=== PATIENT | female | born 1950 | race Caucasian/White ===

== ENCOUNTER 2016-04-02 21:51 | Inpatient (IN) | payer MEDICARE, OTHER ==
[~2016-04-02] VITALS: Ht 157.5 cm; Wt 40.5 kg
[~2016-04-02 21:51] MED LIST: ALEN70TA5 PO; ALPR0.5T PO; ASPI325T4 PO; CHOL100013 PO; CHOL10002 PO; CHOL10003 PO; CIPR500T94 PO; FENT1PAT91 TP; IPRA3AMP NEB; LEVO75TA5 PO; MOME220A5 IH; OXAP600T PO; OXYC10TA PO; OXYC20TA34 PO; OXYC30TA64 PO; PRED-220 PO; PROAIR HFA8.5 GM INH; TIOT18CA IH; TRAM50TA PO
[2016-04-02] MEDS ORDERED: FENTANYL PF 100 MCG/2 ML VIAL. IV PRN ×2 (22:00→22:15)
[2016-04-02] MEDS ORDERED: IPRATRPIUM/ALBUTEROL 0.5/2.5MG 3 ML NEBU. NEB ONE (22:00)
[2016-04-02] MEDS ORDERED: ALBUTEROL SULFATE 2.5 MG/3 ML NEBU. CONT NEB ONE (22:00)
[2016-04-02] MEDS ORDERED: methylPREDNISolone SOD SUCC PF 125 MG/2 ML VIAL. IV ONE (22:00)
[2016-04-02 22:09] LABS: BASO # 0.1 x10^3/uL (0.0-0.2); BASO % 0 % (0-3); EOS % 0 % (0-3); HEMATOCRIT 42.4 % (36.0-47.0); HEMOGLOBIN 13.9 g/dL (12.0-15.5); LYMPH # 1.1 x10^3/uL (1.0-4.8); LYMPH % 5 % (24-48); MEAN CORPUSCULAR HEMOGLOBIN 31 pg (25-35); MEAN CORPUSCULAR HGB CONC 33 g/dL (31-37); MEAN CORPUSCULAR VOLUME 94 fL (79-100); MONO % 5 % (0-9); NEUT % 89 % (31-73); PLATELET COUNT 266 x10^3/uL (140-400); RED BLOOD COUNT 4.53 x10^6/uL (3.50-5.40); RED CELL DISTRIBUTION WIDTH 14.4 % (11.5-14.5); WHITE BLOOD COUNT 22.9 x10^3/uL (4.0-11.0)
[2016-04-02] MEDS ORDERED: ONDANSETRON PF 4 MG/2 ML VIAL. IV PRN (22:15)
[2016-04-02] MEDS ORDERED: ACETAMINOPHEN 325 MG TABLET. PO PRN (22:15)
[2016-04-02 22:28] LABS: CALCIUM 9.8 mg/dL (8.5-10.1); CREATININE 0.6 mg/dL (0.6-1.0); POTASSIUM 4.2 mmol/L (3.5-5.1)
[2016-04-02 22:33] LABS: PLT ESTIMATE ADEQUATE (ADEQUATE); TOXIC GRANULATION SLIGHT
--- NOTE | 2016-04-02 22:44 | PHYS DOC ---
Past Medical History Past Medical History: Anxiety, Arthritis, CHF, COPD, Depression, Hypothyroid, UTI Additional Past Medical Histor: EMPHYSEMA Past Surgical History: Tonsillectomy Additional Past Surgical Histo: ABDOMINAL Alcohol Use: None Drug Use: None Adult General Chief Complaint Chief Complaint: SHORTNESS OF BREATH HPI HPI Patient is a 65 year old female who presents by EMS severe dyspnea. States she thinks it has been worse in the past few days, but she cannot give a clear time course of onset of symptoms. She notes dry cough and dyspnea, not helped with home inhaler. When asked, she does note right foot and ankle swelling over the past week with no history of trauma and no pain. Denies hemoptysis, chest pain, fever or chills, nausea or vomiting, rhinorrhea, sore throat, and myalgia. Review of Systems Review of Systems Constitutional: Denies fever or chills [] Eyes: Denies change in visual acuity, redness, or eye pain [] HENT: Denies nasal congestion or sore throat [] Respiratory: Has cough and shortness of breath [] Cardiovascular: No additional information not addressed in HPI [] GI: Denies abdominal pain, nausea, vomiting, bloody stools or diarrhea [] : Denies dysuria or hematuria [] Musculoskeletal: Denies back pain or joint pain [] Integument: Denies rash or skin lesions [] Neurologic: Denies headache, focal weakness or sensory changes [] Endocrine: Denies polyuria or polydipsia [] Current Medications Current Medications Current Medications Medications (Trade) Dose Ordered Sig/Almas Start Time Stop Time Status Last Admin Dose Admin Albuterol Sulfate (Ventolin Neb Soln) 10 mg 1X ONCE 04/02/16 22:00 04/02/16 22:01 DC 04/02/16 22:09 10 MG Albuterol/ Ipratropium (Duoneb) 3 ml 1X ONCE 04/02/16 22:00 04/02/16 22:01 DC 04/02/16 22:08 3 ML Fentanyl Citrate (Fentanyl 2ml Vial) 25 mcg PRN Q15MIN PRN 04/02/16 22:00 Methylprednisolone Sodium Succinate (Solu-Medrol 125mg Vial) 125 mg 1X ONCE 04/02/16 22:00 04/02/16 22:01 DC 04/02/16 22:18 125 MG Allergies Allergies Allergies Coded Allergies Type Severity Reaction Last Updated Verified shellfish derived Allergy Intermediate 11/11/15 Yes Physical Exam Physical Exam Constitutional: Well developed, well nourished, severe distress, non-toxic appearance. [] HENT: Normocephalic, atraumatic, bilateral external ears normal, oropharynx moist, no oral exudates, nose normal. [] Eyes: PERRLA, EOMI, conjunctiva normal, no discharge. [] Neck: Normal range of motion, supple, no stridor. [] Cardiovascular:Heart rate regular rhythm [] Lungs & Thorax: Bilateral poor air movement, no crackles, tripoding [] Abdomen: Bowel sounds normal, soft, no tenderness. [] Skin: Warm, dry, no erythema, no rash. [] Back: No tenderness, no CVA tenderness. [] Extremities: No tenderness, No discoloration, ROM intact. Right foot and ankle with nonpitting edema. [] Neurologic: Alert and oriented X 3, normal motor function, normal sensory function, no focal deficits noted. [] Psychologic: Affect normal, judgement normal, mood normal. [] Current Patient Data Vital Signs Vital Signs Date Time Temp Pulse Resp B/P Pulse Ox O2 Delivery O2 Flow Rate FiO2 04/02/16 21:51 97.5 117 38 121/55 85 Nasal Cannula 8 97.5 Lab Values Laboratory Tests Test 04/02/16 21:57 White Blood Count 22.9x10^3/uL (4.0-11.0) H Red Blood Count 4.53x10^6/uL (3.50-5.40) Hemoglobin 13.9g/dL (12.0-15.5) Hematocrit 42.4% (36.0-47.0) Mean Corpuscular Volume 94fL (79-100) Mean Corpuscular Hemoglobin 31pg (25-35) Mean Corpuscular Hemoglobin Concent 33g/dL (31-37) Red Cell Distribution Width 14.4% (11.5-14.5) Platelet Count 266x10^3/uL (140-400) Neutrophils (%) (Auto) 89% (31-73) H Lymphocytes (%) (Auto) 5% (24-48) L Monocytes (%) (Auto) 5% (0-9) Eosinophils (%) (Auto) 0% (0-3) Basophils (%) (Auto) 0% (0-3) Neutrophils # (Auto) 20.4x10^3uL (1.8-7.7) H Lymphocytes # (Auto) 1.1x10^3/uL (1.0-4.8) Monocytes # (Auto) 1.2x10^3/uL (0.0-1.1) H Eosinophils # (Auto) 0.0x10^3/uL (0.0-0.7) Basophils # (Auto) 0.1x10^3/uL (0.0-0.2) Segmented Neutrophils % 65% (35-66) Band Neutrophils % 22% (0-9) H Lymphocytes % 11% (24-48) L Monocytes % 2% (0-10) Toxic Granulation Slight Platelet Estimate Adequate (ADEQUATE) D-Dimer (Trina) < 0.27ug/mlFEU (0.00-0.50) Sodium Level 141mmol/L (136-145) Potassium Level 4.2mmol/L (3.5-5.1) Chloride Level 100mmol/L (98-107) Carbon Dioxide Level 35mmol/L (21-32) H Anion Gap 6 (6-14) Blood Urea Nitrogen 23mg/dL (7-20) H Creatinine 0.6mg/dL (0.6-1.0) Estimated GFR (Cockcroft-Gault) 101.0 Glucose Level 151mg/dL (70-99) H Calcium Level 9.8mg/dL (8.5-10.1) Troponin I Quantitative < 0.017ng/mL (0.000-0.055) YI-Cuh-W-Type Natriuretic Peptide 307pg/mL (0-124) H Laboratory Tests 04/02/16 21:57 Laboratory Tests 04/02/16 21:57 EKG EKG EKG as interpreted by me is sinus tachycardia, rate 123, poor quality but no obvious STEMI, time 2201 EKG as interpreted by me as sinus tachycardia, rate 127, no ST-T changes, normal intervals, no ectopy, time 2314 Radiology/Procedures Radiology/Procedures Chest xray as interpreted by me with no acute cardiopulmonary disease process Course & Med Decision Making Course & Med Decision Making Pertinent Labs and Imaging studies reviewed. (See chart for details) She arrived in severe respiratory distress likely from COPD exacerbation. She was placed on BiPAP with improvement in respiratory effort. She now has bilateral wheezing with better air movement. She tested positive for influenza A and she has leukocytosis, but her laboratory evaluation is otherwise unremarkable including negative d-dimer. Discussed case with Dr. Tripp, on- call for Dr. Cooney, who will admit. ABG was deferred at this time due to inability to draw after multiple attempts since her symptoms and exam are improving. Dragon Disclaimer Dragon Disclaimer This electronic medical record was generated, in whole or in part, using a voice recognition dictation system. Critical Care Time Critical care time was 50 minutes exclusive of procedures. Departure Departure Impression: Primary Impression: Acute and chronic respiratory failure Additional Impression: COPD exacerbation Disposition: ADMITTED INPATIENT Condition: CRITICAL Referrals: Cam COONEY MD (PCP) Problem Qualifiers Evan SOUZA MD Apr 02, 2016 22:44
[2016-04-02] MEDS ORDERED: LEVOFLOXACIN PER PHARMACY MC PRN (23:00)
[2016-04-02 23:09] LABS: OBC FLU VALID
[2016-04-02] MEDS ORDERED: OSELTAMIVIR 75 MG CAPSULE PO STA (23:30)
[2016-04-03] VITALS (17 sets, daily range): BP systolic 86–112; BP diastolic 50–69
[2016-04-03] MEDS ORDERED: IV NORMAL SALINE 500ML BAG 500 ML IV ONE (00:15)
--- NOTE | 2016-04-03 08:03 | RAD ---
Portable chest, 04/02/2016: History: Dyspnea Comparison is made to a study from 01/26/2016. The heart size is normal. The lungs are hyperexpanded suggesting obstructive pulmonary disease. There is mildly prominent pulmonary markings in the lung bases probably due to fibrosis. No pulmonary consolidation is seen. There is no evidence of pleural fluid. The bony structures are demineralized. IMPRESSION: 1. Emphysema and fibrosis. 2. No acute cardiopulmonary abnormality is detected.
[2016-04-03] MEDS: IPRATRPIUM/ALBUTEROL 0.5/2.5MG 3 ML NEBU. NEB SCH ×4 (08:08→19:23)
[2016-04-03 08:31] LABS: HCO3 ABG 34 mmol/L (21-28); PH ABG 7.37 (7.35-7.45); PO2 ABG 122 mmHg (65-108); SAT O2 ABG 98 % (92-99)
[2016-04-03 08:32] LABS: FIO2 ABG 50; PCO2 ABG 61 mmHg (35-46)
[2016-04-03] MEDS: OSELTAMIVIR 75 MG CAPSULE PO SCH ×2 (08:48→20:45)
--- NOTE | 2016-04-03 09:42 | PDOC ---
Provider Note Provider Note Dictated doing well off BIPAP transfer to floor JONATHAN RIVAS MD Apr 03, 2016 09:42
--- NOTE | 2016-04-03 10:29 | PDOC ---
PROGRESS NOTES Subjective Subjective Patient reports breathing is much better than at admission. Objective Objective Vital Signs Date Time Temp Pulse Resp B/P Pulse Ox O2 Delivery O2 Flow Rate FiO2 04/03/16 08:49 20 100 Nasal Cannula 2.0 04/03/16 07:00 86 102/63 04/03/16 04:00 98.1 98.1 Intake and Output 04/03/16 07:00 Intake Total 0 ml Balance 0 ml Intake Oral 0 ml # Voids 1 Physical Exam Abdomen: Normal bowel sounds, Soft, No tenderness Heart: Regular rate Extremities: Other (mild edema R LE without erythema or TTP) General: Alert, Oriented X3, No acute distress Lungs: Other (BS moderately decreased throughout, no wheezes heard, no cough with deep breath) Assessment Assessment Problems Medical Problems: (1) Acute and chronic respiratory failure Status: Acute (2) Acute respiratory failure Status: Acute (3) COPD exacerbation Status: Acute Plan Plan of Care 1. Acute on chronic respiratory failure with COPD and Influenza A - required Bipap at admission but has improved and now breathing comfortably on her usual O2 per NC. CXR without infiltrate. Continue nebs and Levaquin. Dr Bhat following. No indication for steroids at this time, patient did receive one dose in the ER. 2. R LE edema - venous dopplers ordered. Does not appear to be due to infection or trauma. Patient thinks it is swollen because she sits with her left leg propped up at home. 3. chronic pain - continue her usual po pain meds. 4. hypothyroidism - continue Levothyroxine. Comment Review of Relevant I have reviewed the following items shubham (where applicable) has been applied. Labs Laboratory Tests Test 04/02/16 21:57 04/02/16 22:20 04/03/16 08:25 White Blood Count 22.9x10^3/uL (4.0-11.0) Red Blood Count 4.53x10^6/uL (3.50-5.40) Hemoglobin 13.9g/dL (12.0-15.5) Hematocrit 42.4% (36.0-47.0) Mean Corpuscular Volume 94fL (79-100) Mean Corpuscular Hemoglobin 31pg (25-35) Mean Corpuscular Hemoglobin Concent 33g/dL (31-37) Red Cell Distribution Width 14.4% (11.5-14.5) Platelet Count 266x10^3/uL (140-400) Neutrophils (%) (Auto) 89% (31-73) Lymphocytes (%) (Auto) 5% (24-48) Monocytes (%) (Auto) 5% (0-9) Eosinophils (%) (Auto) 0% (0-3) Basophils (%) (Auto) 0% (0-3) Neutrophils # (Auto) 20.4x10^3uL (1.8-7.7) Lymphocytes # (Auto) 1.1x10^3/uL (1.0-4.8) Monocytes # (Auto) 1.2x10^3/uL (0.0-1.1) Eosinophils # (Auto) 0.0x10^3/uL (0.0-0.7) Basophils # (Auto) 0.1x10^3/uL (0.0-0.2) Segmented Neutrophils % 65% (35-66) Band Neutrophils % 22% (0-9) Lymphocytes % 11% (24-48) Monocytes % 2% (0-10) Toxic Granulation Slight Platelet Estimate Adequate (ADEQUATE) D-Dimer (Trina) < 0.27ug/mlFEU (0.00-0.50) Sodium Level 141mmol/L (136-145) Potassium Level 4.2mmol/L (3.5-5.1) Chloride Level 100mmol/L (98-107) Carbon Dioxide Level 35mmol/L (21-32) Anion Gap 6 (6-14) Blood Urea Nitrogen 23mg/dL (7-20) Creatinine 0.6mg/dL (0.6-1.0) Estimated GFR (Cockcroft-Gault) 101.0 Glucose Level 151mg/dL (70-99) Calcium Level 9.8mg/dL (8.5-10.1) Troponin I Quantitative < 0.017ng/mL (0.000-0.055) AE-Swb-D-Type Natriuretic Peptide 307pg/mL (0-124) Influenza Type A Antigen Positive (NEGATIVE) Influenza Type B Antigen Negative (NEGATIVE) O2 Saturation 98% (92-99) Arterial Blood pH 7.37 (7.35-7.45) Arterial Blood pCO2 at Patient Temp 61mmHg (35-46) Arterial Blood pO2 at Patient Temp 122mmHg (65-108) Arterial Blood HCO3 34mmol/L (21-28) Arterial Blood Base Excess 7mmol/L (-3-3) FiO2 50 Laboratory Tests Test 04/02/16 21:57 04/02/16 22:20 04/03/16 08:25 White Blood Count 22.9x10^3/uL (4.0-11.0) Red Blood Count 4.53x10^6/uL (3.50-5.40) Hemoglobin 13.9g/dL (12.0-15.5) Hematocrit 42.4% (36.0-47.0) Mean Corpuscular Volume 94fL (79-100) Mean Corpuscular Hemoglobin 31pg (25-35) Mean Corpuscular Hemoglobin Concent 33g/dL (31-37) Red Cell Distribution Width 14.4% (11.5-14.5) Platelet Count 266x10^3/uL (140-400) Neutrophils (%) (Auto) 89% (31-73) Lymphocytes (%) (Auto) 5% (24-48) Monocytes (%) (Auto) 5% (0-9) Eosinophils (%) (Auto) 0% (0-3) Basophils (%) (Auto) 0% (0-3) Neutrophils # (Auto) 20.4x10^3uL (1.8-7.7) Lymphocytes # (Auto) 1.1x10^3/uL (1.0-4.8) Monocytes # (Auto) 1.2x10^3/uL (0.0-1.1) Eosinophils # (Auto) 0.0x10^3/uL (0.0-0.7) Basophils # (Auto) 0.1x10^3/uL (0.0-0.2) Segmented Neutrophils % 65% (35-66) Band Neutrophils % 22% (0-9) Lymphocytes % 11% (24-48) Monocytes % 2% (0-10) Toxic Granulation Slight Platelet Estimate Adequate (ADEQUATE) D-Dimer (Trina) < 0.27ug/mlFEU (0.00-0.50) Sodium Level 141mmol/L (136-145) Potassium Level 4.2mmol/L (3.5-5.1) Chloride Level 100mmol/L (98-107) Carbon Dioxide Level 35mmol/L (21-32) Anion Gap 6 (6-14) Blood Urea Nitrogen 23mg/dL (7-20) Creatinine 0.6mg/dL (0.6-1.0) Estimated GFR (Cockcroft-Gault) 101.0 Glucose Level 151mg/dL (70-99) Calcium Level 9.8mg/dL (8.5-10.1) Troponin I Quantitative < 0.017ng/mL (0.000-0.055) RC-Vik-Z-Type Natriuretic Peptide 307pg/mL (0-124) Influenza Type A Antigen Positive (NEGATIVE) Influenza Type B Antigen Negative (NEGATIVE) O2 Saturation 98% (92-99) Arterial Blood pH 7.37 (7.35-7.45) Arterial Blood pCO2 at Patient Temp 61mmHg (35-46) Arterial Blood pO2 at Patient Temp 122mmHg (65-108) Arterial Blood HCO3 34mmol/L (21-28) Arterial Blood Base Excess 7mmol/L (-3-3) FiO2 50 Medications Current Medications Albuterol/ Ipratropium (Duoneb) 3 ml 1X ONCE NEB Last administered on 22:08; Start 04/02/16 at 22:00; Stop 04/02/16 at 22:01; Status DC Methylprednisolone Sodium Succinate (Solu-Medrol 125mg Vial) 125 mg 1X ONCE IV Last administered on 04/02/16 22:18; Start 04/02/16 at 22:00; Stop 04/02/16 at 22:01; Status DC Albuterol Sulfate (Ventolin Neb Soln) 10 mg 1X ONCE CONT NEB Last administered on 04/02/16 22:09; Start 04/02/16 at 22:00; Stop 04/02/16 at 22:01 ; Status DC Fentanyl Citrate (Fentanyl 2ml Vial) 25 mcg PRN Q15MIN PRN IV pain; Start 04/02 at 22:00 Ondansetron HCl (Zofran) 4 mg PRN Q8HRS PRN IV NAUSEA/VOMITING; Start 04/02/16 at 22:15; Stop 04/03/16 at 22:14 Fentanyl Citrate (Fentanyl 2ml Vial) 50 mcg PRN Q2HR PRN IV PAIN Last administered on 04/03/16 08:49; Start 04/02/16 at 22:15; Stop 04/03/16 at 22:14 Acetaminophen (Tylenol) 650 mg PRN Q4HRS PRN PO FEVER; Start 04/02/16 at 22:15 ; Stop 04/03/16 at 22:14 Albuterol/ Ipratropium (Duoneb) 3 ml RTQID NEB Last administered on 04/03/16 08:08; Start 04/03/16 at 08:00; Stop 04/04/16 at 07:59 Levofloxacin/ Dextrose 1 each 1 each PRN DAILY PRN MC SEE COMMENTS; Start 04/02 at 23:00 Levofloxacin/ Dextrose (LEVAQUIN 500mg PREMIX) 100 ml @ 100 mls/hr Q24H IV Last administered on 04/02/16 23:05; Start 04/02/16 at 23:00 Oseltamivir Phosphate (Tamiflu) 75 mg BID PO Last administered on 04/03/16 08: 48; Start 04/03/16 at 09:00; Stop 04/08/16 at 08:59 Oseltamivir Phosphate 75 mg 75 mg 1X STAT PO Last administered on 04/02/16 23 :49; Start 04/02/16 at 23:30; Stop 04/02/16 at 23:32; Status DC Sodium Chloride (Iv Sodium Chloride 0.9% 500ml Bag) 500 ml @ 500 mls/hr 1X ONCE IV Last administered on 04/03/16 00:15; Start 04/03/16 at 00:15; Stop at 01:14; Status DC Active Scripts Active Asmanex (Mometasone Furoate) 220 Mcg Aer.pow.ba 220 Mcg IH DAILY Duoneb 0.5-3(2.5) Mg/3 Ml (Albuterol/Ipratropium) 3 Ml Ampul.neb 3 Ml NEB RTQID Reported Oxycodone Hcl 10 Mg Tablet 20 Mg PO BID Vitamin D (Cholecalciferol (Vitamin D3)) 1,000 Unit Tablet 1,000 Unit PO BID Aspirin 325 Mg Tablet 1 Tab PO DAILY Daypro (Oxaprozin) 600 Mg Tablet 1 Tab PO BID Levothyroxine Sodium 75 Mcg Tablet 1 Tab PO DAILY Vitals/I & O Vital Sign - Last 24 Hours 04/02/16 04/02/16 04/02/16 04/02/16 21:51 22:10 22:30 23:00 Temp 97.5 97.5 Pulse 117 122 126 Resp 38 26 32 B/P 121/55 144/89 105/62 Pulse Ox 85 99 99 O2 Delivery Nasal Cannula BiPAP/CPAP BiPAP/CPAP BiPAP/CPAP O2 Flow Rate 8 04/02/16 04/02/16 04/03/16 04/03/16 23:17 23:30 00:00 00:30 Pulse 124 112 102 Resp 22 22 B/P 83/55 80/52 89/58 Pulse Ox 100 100 100 O2 Delivery BiPAP/CPAP BiPAP/CPAP BiPAP/CPAP BiPAP/CPAP 04/03/16 04/03/16 04/03/16 04/03/16 01:00 01:15 01:15 01:24 Temp 98.5 98.5 Pulse 100 100 Resp 23 B/P 103/64 112/63 Pulse Ox 98 100 100 O2 Delivery BiPAP/CPAP Bi-pap BiPAP/CPAP BiPAP/CPAP 04/03/16 04/03/16 04/03/16 04/03/16 01:30 01:45 02:00 02:30 Pulse 98 92 90 88 Resp 22 18 18 15 B/P 95/62 86/54 95/66 98/65 Pulse Ox 100 100 100 100 O2 Delivery BiPAP/CPAP BiPAP/CPAP BiPAP/CPAP BiPAP/CPAP 04/03/16 04/03/16 04/03/16 04/03/16 03:00 04:00 04:00 05:00 Temp 98.1 98.1 Pulse 88 86 98 Resp 28 B/P 99/63 94/59 97/69 Pulse Ox 100 100 100 O2 Delivery BiPAP/CPAP BiPAP/CPAP Bi-pap BiPAP/CPAP 04/03/16 04/03/16 04/03/16 04/03/16 05:05 06:00 07:00 08:08 Pulse 82 86 Resp 18 14 B/P 91/58 102/63 Pulse Ox 96 100 99 100 O2 Delivery BiPAP/CPAP BiPAP/CPAP BiPAP/CPAP BiPAP/CPAP 04/03/16 08:49 Resp 20 Pulse Ox 100 O2 Delivery Nasal Cannula O2 Flow Rate 2.0 Intake and Output 04/02/16 04/02/16 04/03/16 15:00 23:00 07:00 Intake Total 0 ml Balance 0 ml KOLBY JEWELL MD Apr 03, 2016 10:29
[2016-04-03] MEDS ORDERED: OXYCODONE IR 30 MG TABLET. PO PRN (10:30)
[2016-04-03] MEDS: OXYCODONE IR 5 MG TABLET. PO PRN ×2 (10:56→21:01)
[2016-04-03] MEDS: ASPIRIN 325 MG TABLET PO SCH (10:56)
[2016-04-03] MEDS: CHOLECALCIFEROL (VITAMIN D3) 1,000 UNIT TABLET PO SCH ×2 (10:56→20:45)
[2016-04-03] MEDS: LEVOTHYROXINE 75 MCG TABLET PO SCH (10:56)
--- NOTE | 2016-04-03 11:12 | RAD ---
Right lower extremity venous ultrasound, 04/03/2016 : History: Right leg edema Duplex evaluation including grayscale, color flow and spectral Doppler analysis was performed. The femoral and popliteal veins show no filling defects to suggest DVT. The visualized calf veins are unremarkable. Mild streaky subcutaneous edema is noted in the lower leg. IMPRESSION: There is no sonographic evidence of deep vein thrombosis in the right lower extremity
--- NOTE | 2016-04-03 11:53 | HP ---
ADMIT DATE: 04/03/2016 CHIEF COMPLAINT: Shortness of breath. HISTORY OF PRESENT ILLNESS: The patient is a 65-year-old female with chronic respiratory failure due to COPD who presented to the Emergency Room with the above complaint. She reported a several day history of increasing fatigue and malaise. She had been wearing her oxygen at home and using her usual breathing treatments, but her symptoms worsened. When seen in the Emergency, she was in moderate respiratory distress with significant hypoxia on oxygen. She was placed on BiPAP and admitted for further treatment. PAST MEDICAL HISTORY: Chronic respiratory failure due to COPD, hypothyroidism, osteoporosis, chronic back pain, cardiac arrest secondary to pulmonary arrest in 2016. PAST SURGICAL HISTORY: Tonsillectomy, low back surgery, carpal tunnel release, bilateral thumb surgery and left knee surgery. ALLERGIES: The patient has no known drug allergies, but IS ALLERGIC TO SHELLFISH. MEDICATIONS: DuoNebs q.i.d., albuterol p.r.n., Daypro 600 mg two daily, oxycodone 20 mg b.i.d. p.r.n., levothyroxine 75 mcg daily, alendronate 70 mg weekly, vitamin D 1000 international units daily. FAMILY HISTORY: Noncontributory. SOCIAL HISTORY: The patient lives at home by herself. She still smokes several cigarettes daily. She does not drink alcohol to excess. REVIEW OF SYSTEMS: The patient denies fever or chills. She denies chest pain or palpitations. She denies abdominal pain, nausea or vomiting. Her chronic pain has been fairly well controlled with her usual pain pills for this. She has noticed that her right leg seems swollen compared to the left. She denies trauma. She believes this is because she often sits at home with her left leg propped up on a small stool, but not her right leg. PHYSICAL EXAMINATION: GENERAL: The patient is alert and oriented x 3, resting comfortably in bed in no acute distress. HEENT: PERRL, EOMI, sclerae clear. Oropharynx: Mucous membranes moist. NECK: Supple, without lymphadenopathy. CHEST: Breath sounds are moderately decreased throughout, but otherwise clear to auscultation. No wheezes heard. No cough with deep breath. CARDIOVASCULAR: Regular rhythm without murmur. ABDOMEN: Soft, nontender, normoactive bowel sounds are present. EXTREMITIES: The left lower extremity is within normal limits. The right lower extremity has mild edema from the calf down to the foot. There is no erythema. There is no tenderness to palpation. ASSESSMENT AND PLAN: 1. Acute on chronic respiratory failure with chronic obstructive pulmonary disease and influenza A. The patient was positive for influenza in the Emergency Room. She has been started on Tamiflu and Levaquin. Chest x-ray does not show an acute infiltrate. She required BiPAP overnight, but has transitioned to her usual oxygen per nasal cannula and is now breathing comfortably on this. Dr. Bhat has seen the patient. The patient received 1 dose of Solu-Medrol in the Emergency Room. Dr. Bhat does not feel further steroids are indicated at this time. 2. Right lower extremity edema, this does not appear to be due to infection or trauma. Venous Dopplers have been ordered to rule out deep vein thrombosis. The patient is advised to keep it elevated while she was in bed to help with the swelling. 3. Chronic pain. This is stable. Continue her usual oral medication. 4. Hypothyroidism. Continue levothyroxine. KOLBY JEWELL MD DR: CIRO/edy JOB#: [id number] / [id number] DESTINY
[2016-04-03] MEDS ORDERED: IPRATRPIUM/ALBUTEROL 0.5/2.5MG 3 ML NEBU. NEB SCH (12:00)
[2016-04-03] MEDS: BUDESONIDE 0.5 MG/2 ML NEBU NEB SCH ×2 (12:04→19:23)
[2016-04-03] MEDS: IBUPROFEN 600 MG TABLET. PO SCH ×2 (14:17→20:45)
--- NOTE | 2016-04-03 14:18 | EKG ---
[facility] [address] [place] [address] Test Date: 2016-04-02 Test Time: 22:01:44 Pat Name: DENNY SMITH Department: Room: Gender: F Senior Clinical Consultant: : 1950 Requested By: Evan SOUZA Order Number: [id number] Reading MD: Measurements Intervals [place] Rate: 123 P: [place]: QRS: 7 QRSD: 86 T: 85 QT: 292 QTc: 423 Interpretive Statements IRREGULAR RHYTHM, NO P-WAVE FOUND LOW LIMB LEAD VOLTAGE QRS(T) CONTOUR ABNORMALITY CONSISTENT WITH ANTEROSEPTAL INFARCT AGE UNDETERMINED T ABNORMALITY IN HIGH LATERAL LEADS RI6.01 Unconfirmed report No previous ECG available for comparison
--- NOTE | 2016-04-03 14:19 | EKG ---
[facility] [address] [place] [address] Test Date: 2016-04-02 Test Time: 23:14:45 Pat Name: DENNY SMITH Department: Room: Gender: F Warehouse Associate Driver: : 1950 Requested By: Evan SOUZA Order Number: [id number] Reading MD: Measurements Intervals [place] Rate: 127 P: 71 [place]: 144 QRS: 9 QRSD: 76 T: 84 QT: 230 QTc: 338 Interpretive Statements SINUS TACHYCARDIA ATRIAL PREMATURE COMPLEX(ES) LEFT ATRIAL ABNORMALITY LOW LIMB LEAD VOLTAGE QRS(T) CONTOUR ABNORMALITY CONSISTENT WITH ANTEROSEPTAL INFARCT AGE UNDETERMINED T ABNORMALITY IN ANTERIOR LEADS LATERAL LEADS RI6.01 Unconfirmed report No previous ECG available for comparison
[2016-04-04 03:06] VITALS: BP 93/53
--- NOTE | 2016-04-04 05:36 | CONS ---
DATE OF CONSULTATION: ATTENDING PHYSICIAN: Dr. Guerrero Diez. REASON FOR CONSULTATION: COPD exacerbation and respiratory failure. HISTORY OF PRESENT ILLNESS: The patient is a 65-year-old female, who has history of severe COPD. She is chronically on oxygen 2 to 2-1/2 L. The patient still on and off smokes cigarettes. She was brought in the hospital with increasing dyspnea, which was progressive. There was no significant chest pain. No leg edema. She had some dry cough. The patient was seen in the Emergency Room and her influenza screen was positive for influenza A. She is not sure whether she received a flu vaccine. Her chest x-ray did not reveal any obvious infiltrates. There were slightly prominent interstitial markings which could be related to mild fibrosis or interstitial viral pneumonitis. The patient had an echocardiogram in 11/2015 and it showed an EF of 65%. She has ABGs done while on BiPAP, which showed a pH of 7.37, pCO2 of 61 and pO2 of 122 on 50% FiO2. She feels much better. She has now taken off the BiPAP and I have been asked to see her for further evaluation. PAST MEDICAL HISTORY: Significant for severe oxygen-dependent COPD, history of chronic respiratory failure, history of depression, hypothyroidism, UTI and normal EF previously. PAST SURGICAL HISTORY: Including tonsillectomy and abdominal surgery. ALLERGIES: SHELLFISH. MEDICATIONS: Reviewed as listed in the [facility]AD including Tamiflu, DuoNeb, antibiotics and Levaquin. REVIEW OF SYSTEMS: Twelve-point systems obtained. Pertinent positives discussed in my history of present illness, otherwise noncontributory. All systems that were negative were reviewed as well. SOCIAL HISTORY: Smoked for 40+ years and still on and off smokes cigarettes. FAMILY HISTORY: Noncontributory. PHYSICAL EXAMINATION: VITAL SIGNS: Blood pressure 102/63, pulse ox 100% on 2 L, afebrile. HEENT: Sclerae nonicteric. NECK: Supple. LUNGS: With diminished breath sounds. No crackles or wheezes. CARDIOVASCULAR: Regular rate and rhythm. ABDOMEN: Soft. EXTREMITIES: With no pitting edema. LABORATORY DATA: Reviewed. Chemistries with a BUN of 22 and a creatinine of 0.6. ProBNP is 307. D-dimer less than 0.27. White cell count 22.9, hemoglobin 13.0 and platelets are 266. IMPRESSION: 1. Nyvia-at-ipurvdc respiratory failure secondary to acute exacerbation of chronic obstructive pulmonary disease and viral pneumonitis. 2. Influenza A pneumonitis. 3. Abnormal chest x-ray with prominent interstitial markings with a normal proBNP. This is most likely related to viral pneumonitis. 4. Normal ejection fraction of 65% previously. RECOMMENDATIONS: 1. Continue Tamiflu. 2. Respiratory isolation for influenza. 3. Continue with DuoNebs. 4. Monitor white cell count. It could be high due to steroids. 5. Continue empiric antibiotics for now. 6. The patient can be transferred out of the ICU. 7. Smoking cessation counseling provided. JONATHAN RIVAS MD DR: BERYL/edy JOB#: [id number] / [id number] Cam Jewell MD
[2016-04-04] MEDS: LEVOTHYROXINE 75 MCG TABLET PO SCH (06:20)
[2016-04-04] MEDS: IPRATRPIUM/ALBUTEROL 0.5/2.5MG 3 ML NEBU. NEB SCH ×4 (07:41→19:07)
[2016-04-04] MEDS: BUDESONIDE 0.5 MG/2 ML NEBU NEB SCH ×2 (07:41→19:09)
[2016-04-04] MEDS: ASPIRIN 325 MG TABLET PO SCH (08:30)
[2016-04-04] MEDS: IBUPROFEN 600 MG TABLET. PO SCH ×3 (08:30→20:46)
[2016-04-04] MEDS ORDERED: ALBUTEROL SULFATE 2.5 MG/3 ML NEBU. NEB PRN (08:30)
[2016-04-04] MEDS: CHOLECALCIFEROL (VITAMIN D3) 1,000 UNIT TABLET PO SCH ×2 (08:31→20:46)
[2016-04-04] MEDS: OSELTAMIVIR 75 MG CAPSULE PO SCH ×2 (08:31→20:46)
[2016-04-04 08:48] VITALS: BP 109/62
--- NOTE | 2016-04-04 08:58 | PDOC ---
PROGRESS NOTES Subjective Subjective Better but weak Objective Objective Vital Signs Date Time Temp Pulse Resp B/P Pulse Ox O2 Delivery O2 Flow Rate FiO2 04/04/16 08:48 98.1 87 18 109/62 95 Nasal Cannula 2.0 98.1 Intake and Output 04/04/16 07:00 Intake Total 1000 ml Output Total 1200 ml Balance -200 ml Intake Oral 1000 ml Output Urine Total 1200 ml # Voids 2 Physical Exam Abdomen: Normal bowel sounds Heart: Regular rate Extremities: No clubbing, No cyanosis General: Alert, Oriented X3, Cooperative HEENT: Atraumatic Lungs: Other (good breathing effort) Neck: Supple Neuro: Normal speech Psych/Mental Status: Mental status NL Assessment Assessment Problems Medical Problems: (1) Acute and chronic respiratory failure - due to Influenza A Status: Acute (2) Acute respiratory failure Status: Acute (3) COPD exacerbation Status: Acute Plan Plan of Care PT, OT to see, f/u CXR and CBC, may be able to DC levaquin, continue Tamiflu Comment Review of Relevant I have reviewed the following items shubham (where applicable) has been applied. Labs Laboratory Tests Test 04/02/16 21:57 04/02/16 22:20 04/03/16 06:05 04/03/16 08:25 White Blood Count 22.9x10^3/uL (4.0-11.0) Red Blood Count 4.53x10^6/uL (3.50-5.40) Hemoglobin 13.9g/dL (12.0-15.5) Hematocrit 42.4% (36.0-47.0) Mean Corpuscular Volume 94fL (79-100) Mean Corpuscular Hemoglobin 31pg (25-35) Mean Corpuscular Hemoglobin Concent 33g/dL (31-37) Red Cell Distribution Width 14.4% (11.5-14.5) Platelet Count 266x10^3/uL (140-400) Neutrophils (%) (Auto) 89% (31-73) Lymphocytes (%) (Auto) 5% (24-48) Monocytes (%) (Auto) 5% (0-9) Eosinophils (%) (Auto) 0% (0-3) Basophils (%) (Auto) 0% (0-3) Neutrophils # (Auto) 20.4x10^3uL (1.8-7.7) Lymphocytes # (Auto) 1.1x10^3/uL (1.0-4.8) Monocytes # (Auto) 1.2x10^3/uL (0.0-1.1) Eosinophils # (Auto) 0.0x10^3/uL (0.0-0.7) Basophils # (Auto) 0.1x10^3/uL (0.0-0.2) Segmented Neutrophils % 65% (35-66) Band Neutrophils % 22% (0-9) Lymphocytes % 11% (24-48) Monocytes % 2% (0-10) Toxic Granulation Slight Platelet Estimate Adequate (ADEQUATE) D-Dimer (Trina) < 0.27ug/mlFEU (0.00-0.50) Sodium Level 141mmol/L (136-145) Potassium Level 4.2mmol/L (3.5-5.1) Chloride Level 100mmol/L (98-107) Carbon Dioxide Level 35mmol/L (21-32) Anion Gap 6 (6-14) Blood Urea Nitrogen 23mg/dL (7-20) Creatinine 0.6mg/dL (0.6-1.0) Estimated GFR (Cockcroft-Gault) 101.0 Glucose Level 151mg/dL (70-99) Calcium Level 9.8mg/dL (8.5-10.1) Troponin I Quantitative < 0.017ng/mL (0.000-0.055) XV-Ckh-[id number]-Type Natriuretic Peptide 307pg/mL (0-124) Influenza Type A Antigen Positive (NEGATIVE) Influenza Type B Antigen Negative (NEGATIVE) Nasal Screen MRSA (PCR) Negative (Negative) O2 Saturation 98% (92-99) Arterial Blood pH 7.37 (7.35-7.45) Arterial Blood pCO2 at Patient Temp 61mmHg (35-46) Arterial Blood pO2 at Patient Temp 122mmHg (65-108) Arterial Blood HCO3 34mmol/L (21-28) Arterial Blood Base Excess 7mmol/L (-3-3) FiO2 50 Medications Current Medications Albuterol/ Ipratropium (Duoneb) 3 ml 1X ONCE NEB Last administered on t 22:08; Start 04/02/16 at 22:00; Stop 04/02/16 at 22:01; Status DC Methylprednisolone Sodium Succinate (Solu-Medrol 125mg Vial) 125 mg 1X ONCE IV Last administered on 04/02/16 22:18; Start 04/02/16 at 22:00; Stop 04/02/16 at 22:01; Status DC Albuterol Sulfate (Ventolin Neb Soln) 10 mg 1X ONCE CONT NEB Last administered on 04/02/16 22:09; Start 04/02/16 at 22:00; Stop 04/02/16 at 22:01 ; Status DC Fentanyl Citrate (Fentanyl 2ml Vial) 25 mcg PRN Q15MIN PRN IV pain; Start 04/02 at 22:00; Stop 04/03/16 at 10:23; Status DC Ondansetron HCl (Zofran) 4 mg PRN Q8HRS PRN IV NAUSEA/VOMITING; Start 04/02/16 at 22:15; Stop 04/03/16 at 22:14; Status DC Fentanyl Citrate (Fentanyl 2ml Vial) 50 mcg PRN Q2HR PRN IV PAIN Last administered on 04/03/16 08:49; Start 04/02/16 at 22:15; Stop 04/03/16 at 10:23 ; Status DC Acetaminophen (Tylenol) 650 mg PRN Q4HRS PRN PO FEVER; Start 04/02/16 at 22:15 ; Stop 04/03/16 at 22:14; Status DC Albuterol/ Ipratropium (Duoneb) 3 ml RTQID NEB Last administered on 04/04/16 07:41; Start 04/03/16 at 08:00; Stop 04/04/16 at 07:59; Status DC Levofloxacin/ Dextrose 1 each 1 each PRN DAILY PRN MC SEE COMMENTS; Start 04/02 at 23:00 Levofloxacin/ Dextrose (LEVAQUIN 500mg PREMIX) 100 ml @ 100 mls/hr Q24H IV Last administered on 04/03/16 23:27; Start 04/02/16 at 23:00 Oseltamivir Phosphate (Tamiflu) 75 mg BID PO Last administered on 04/04/16 08: 31; Start 04/03/16 at 09:00; Stop 04/08/16 at 08:59 Oseltamivir Phosphate 75 mg 75 mg 1X STAT PO Last administered on 04/02/16 23 :49; Start 04/02/16 at 23:30; Stop 04/02/16 at 23:32; Status DC Sodium Chloride (Iv Sodium Chloride 0.9% 500ml Bag) 500 ml @ 500 mls/hr 1X ONCE IV Last administered on 04/03/16 00:15; Start 04/03/16 at 00:15; Stop at 01:14; Status DC Aspirin (Fortino Aspirin) 325 mg DAILY PO Last administered on 04/04/16 08:30; Start 04/03/16 at 10:30 Vitamin D (Vitamin D3) 1,000 unit BID PO Last administered on 04/04/16 08:31; Start 04/03/16 at 11:00 Albuterol/ Ipratropium (Duoneb) 3 ml RTQID NEB ; Start 04/03/16 at 12:00; Stop 04/03/16 at 12:00; Status DC Levothyroxine Sodium (Synthroid) 75 mcg DAILYAC PO Last administered on 06:20; Start 04/03/16 at 10:30 Budesonide (Pulmicort) 0.5 mg RTBID NEB Last administered on 04/04/16 07:41; Start 04/03/16 at 11:00 Ibuprofen (Motrin) 600 mg TID PO Last administered on 04/04/16 08:30; Start at 14:00 Oxycodone HCl (Roxicodone) 20 mg PRN BID PRN PO PAIN; Start 04/03/16 at 10:30; Stop 04/03/16 at 10:47; Status DC Oxycodone HCl (Roxicodone) 20 mg PRN BID PRN PO PAIN Last administered on 21:01; Start 04/03/16 at 11:00 Albuterol/ Ipratropium (Duoneb) 3 ml RTQID NEB ; Start 04/04/16 at 12:00 Albuterol Sulfate (Ventolin Neb Soln) 2.5 mg PRN Q4HRS PRN NEB SHORTNESS OF BREATH; Start 04/04/16 at 08:30 Active Scripts Active Asmanex (Mometasone Furoate) 220 Mcg Aer.pow.ba 220 Mcg IH DAILY Duoneb 0.5-3(2.5) Mg/3 Ml (Albuterol/Ipratropium) 3 Ml Ampul.neb 3 Ml NEB RTQID Reported Oxycodone Hcl 10 Mg Tablet 20 Mg PO BID Vitamin D (Cholecalciferol (Vitamin D3)) 1,000 Unit Tablet 1,000 Unit PO BID Aspirin 325 Mg Tablet 1 Tab PO DAILY Daypro (Oxaprozin) 600 Mg Tablet 1 Tab PO BID Levothyroxine Sodium 75 Mcg Tablet 1 Tab PO DAILY Vitals/I & O Vital Sign - Last 24 Hours 04/03/16 04/03/16 04/03/16 04/03/16 10:00 10:37 10:56 12:00 Temp 98.9 98.9 Pulse 92 96 Resp 20 24 B/P 96/58 90/54 Pulse Ox 99 99 98 O2 Delivery Room Air Nasal Cannula Room Air O2 Flow Rate 2.0 2.0 04/03/16 04/03/16 04/03/16 04/03/16 12:04 13:00 16:00 17:00 Temp 98.0 98.2 98.0 98.2 Pulse 87 Resp 24 B/P 90/50 102/64 Pulse Ox 94 95 95 O2 Delivery Nasal Cannula Nasal Cannula Nasal Cannula O2 Flow Rate 2.5 2.0 2.5 04/03/16 04/03/16 04/03/16 04/03/16 19:00 19:23 20:00 21:01 Temp 97.1 97.1 Pulse 93 Resp 20 B/P 95/55 Pulse Ox 92 92 92 O2 Delivery Nasal Cannula Nasal Cannula Bi-pap Nasal Cannula O2 Flow Rate 2.5 2.5 2.5 04/03/16 04/03/16 04/04/16 04/04/16 22:01 23:00 03:06 07:41 Temp 97.0 97.1 97.0 97.1 Pulse 100 91 Resp 20 20 B/P 97/54 93/53 Pulse Ox 90 90 94 97 O2 Delivery Nasal Cannula Nasal Cannula Nasal Cannula Nasal Cannula O2 Flow Rate 2.5 2.5 04/04/16 08:48 Temp 98.1 98.1 Pulse 87 Resp 18 B/P 109/62 Pulse Ox 95 O2 Delivery Nasal Cannula O2 Flow Rate 2.0 Intake and Output 04/03/16 04/03/16 04/04/16 15:00 23:00 07:00 Intake Total 600 ml 400 ml Output Total 450 ml 300 ml 450 ml Balance 150 ml 100 ml -450 ml Cam COONEY MD Apr 04, 2016 08:58
--- NOTE | 2016-04-04 10:03 | PDOC ---
PULMONARY PROGRESS NOTES Subjective no soa Vitals Vital Signs Date Time Temp Pulse Resp B/P Pulse Ox O2 Delivery O2 Flow Rate FiO2 04/04/16 08:48 98.1 87 18 109/62 95 Nasal Cannula 2.0 98.1 General: Alert, No acute distress Lungs: Other (decrease bs) Cardiovascular: S1 Abdomen: Soft Neuro Exam: Alert Extremities: No Edema Labs Laboratory Tests Test 04/02/16 21:57 04/02/16 22:20 04/03/16 06:05 04/03/16 08:25 White Blood Count 22.9x10^3/uL (4.0-11.0) Red Blood Count 4.53x10^6/uL (3.50-5.40) Hemoglobin 13.9g/dL (12.0-15.5) Hematocrit 42.4% (36.0-47.0) Mean Corpuscular Volume 94fL (79-100) Mean Corpuscular Hemoglobin 31pg (25-35) Mean Corpuscular Hemoglobin Concent 33g/dL (31-37) Red Cell Distribution Width 14.4% (11.5-14.5) Platelet Count 266x10^3/uL (140-400) Neutrophils (%) (Auto) 89% (31-73) Lymphocytes (%) (Auto) 5% (24-48) Monocytes (%) (Auto) 5% (0-9) Eosinophils (%) (Auto) 0% (0-3) Basophils (%) (Auto) 0% (0-3) Neutrophils # (Auto) 20.4x10^3uL (1.8-7.7) Lymphocytes # (Auto) 1.1x10^3/uL (1.0-4.8) Monocytes # (Auto) 1.2x10^3/uL (0.0-1.1) Eosinophils # (Auto) 0.0x10^3/uL (0.0-0.7) Basophils # (Auto) 0.1x10^3/uL (0.0-0.2) Segmented Neutrophils % 65% (35-66) Band Neutrophils % 22% (0-9) Lymphocytes % 11% (24-48) Monocytes % 2% (0-10) Toxic Granulation Slight Platelet Estimate Adequate (ADEQUATE) D-Dimer (Trina) < 0.27ug/mlFEU (0.00-0.50) Sodium Level 141mmol/L (136-145) Potassium Level 4.2mmol/L (3.5-5.1) Chloride Level 100mmol/L (98-107) Carbon Dioxide Level 35mmol/L (21-32) Anion Gap 6 (6-14) Blood Urea Nitrogen 23mg/dL (7-20) Creatinine 0.6mg/dL (0.6-1.0) Estimated GFR (Cockcroft-Gault) 101.0 Glucose Level 151mg/dL (70-99) Calcium Level 9.8mg/dL (8.5-10.1) Troponin I Quantitative < 0.017ng/mL (0.000-0.055) KL-Axg-N-Type Natriuretic Peptide 307pg/mL (0-124) Influenza Type A Antigen Positive (NEGATIVE) Influenza Type B Antigen Negative (NEGATIVE) Nasal Screen MRSA (PCR) Negative (Negative) O2 Saturation 98% (92-99) Arterial Blood pH 7.37 (7.35-7.45) Arterial Blood pCO2 at Patient Temp 61mmHg (35-46) Arterial Blood pO2 at Patient Temp 122mmHg (65-108) Arterial Blood HCO3 34mmol/L (21-28) Arterial Blood Base Excess 7mmol/L (-3-3) FiO2 50 Medications Active Scripts Medications Dose Route/Sig Days Date Category Asmanex (Mometasone Furoate) 220 Mcg Aer.pow.ba 220 Mcg IH DAILY 01/29/16 Rx Duoneb 0.5-3(2.5) Mg/3 Ml (Albuterol/Ipratropium) 3 Ml Ampul.neb 3 Ml NEB RTQID 01/29/16 Rx Oxycodone Hcl 10 Mg Tablet 20 Mg PO BID 01/26/16 Reported Vitamin D (Cholecalciferol (Vitamin D3)) 1,000 Unit Tablet 1,000 Unit PO BID 11/10/15 Reported Aspirin 325 Mg Tablet 1 Tab PO DAILY 10/01/15 Reported Daypro (Oxaprozin) 600 Mg Tablet 1 Tab PO BID 10/01/15 Reported Levothyroxine Sodium 75 Mcg Tablet 1 Tab PO DAILY 10/01/15 Reported Impression . 1. Ckpyh-zt-twyglax respiratory failure secondary to acute exacerbation of chronic obstructive pulmonary disease and viral pneumonitis. 2. Influenza A pneumonitis. 3. Abnormal chest x-ray with prominent interstitial markings with a normal proBNP. This is most likely related to viral pneumonitis. 4. Normal ejection fraction of 65% previously. Plan . 1. Continue Tamiflu. 2. Respiratory isolation for influenza. 3. Continue with DuoNebs. 4. Monitor white cell count. It could be high due to steroids. 5. Continue empiric antibiotics for now. 6. increase ambulation 7. Smoking cessation counseling provided. JONATHAN RIVAS MD Apr 04, 2016 10:03
[2016-04-04 10:10] LABS: BASO % 0 % (0-3); EOS % 0 % (0-3); HEMATOCRIT 31.9 % (36.0-47.0); HEMOGLOBIN 10.3 g/dL (12.0-15.5); LYMPH # 0.9 x10^3/uL (1.0-4.8); LYMPH % 6 % (24-48); MEAN CORPUSCULAR HEMOGLOBIN 30 pg (25-35); MEAN CORPUSCULAR HGB CONC 32 g/dL (31-37); MEAN CORPUSCULAR VOLUME 94 fL (79-100); MONO % 6 % (0-9); NEUT % 88 % (31-73); PLATELET COUNT 242 x10^3/uL (140-400); RED BLOOD COUNT 3.39 x10^6/uL (3.50-5.40); WHITE BLOOD COUNT 13.9 x10^3/uL (4.0-11.0)
[2016-04-04 11:09] VITALS: BP 95/57
[2016-04-04] MEDS: OXYCODONE IR 5 MG TABLET. PO PRN ×2 (13:53→20:45)
[2016-04-04 15:00] VITALS: BP 95/52
--- NOTE | 2016-04-04 15:30 | RAD ---
Chest, 2 views, 04/04/2016: History: Chest pain, cough, positive flu Comparison is made to a study from 04/02/2016. The heart size is normal. There are emphysematous changes in the lungs with scattered parenchymal scars. No acute infiltrate is seen. No pleural fluid is evident. IMPRESSION: 1. Moderate emphysema with parenchymal scarring. 2. No acute abnormality is detected.
[2016-04-04 19:00] VITALS: BP 107/56
[2016-04-04] MEDS ORDERED: LEVOFLOXACIN 500 MG TABLET PO SCH (21:00)
[2016-04-04 23:00] VITALS: BP 100/53
[2016-04-05 03:00] VITALS: BP 105/49
[2016-04-05 07:00] VITALS: BP 113/66
[2016-04-05] MEDS: BUDESONIDE 0.5 MG/2 ML NEBU NEB SCH (07:15)
[2016-04-05] MEDS: IPRATRPIUM/ALBUTEROL 0.5/2.5MG 3 ML NEBU. NEB SCH ×2 (07:15→11:25)
[2016-04-05] MEDS: LEVOTHYROXINE 75 MCG TABLET PO SCH (08:01)
[2016-04-05] MEDS: OSELTAMIVIR 75 MG CAPSULE PO SCH (08:01)
[2016-04-05] MEDS: IBUPROFEN 600 MG TABLET. PO SCH (08:01)
[2016-04-05] MEDS: CHOLECALCIFEROL (VITAMIN D3) 1,000 UNIT TABLET PO SCH (08:01)
[2016-04-05] MEDS: ASPIRIN 325 MG TABLET PO SCH (08:03)
--- NOTE | 2016-04-05 08:37 | PDOC ---
PROGRESS NOTES Subjective Subjective Patient reports feeling better overall this morning but is still feeling weak. States she has been coughing up some yellow sputum. Objective Objective Vital Signs Date Time Temp Pulse Resp B/P Pulse Ox O2 Delivery O2 Flow Rate FiO2 04/05/16 07:15 98 Nasal Cannula 2.5 04/05/16 03:00 98.1 91 20 105/49 98.1 Intake and Output 04/05/16 07:00 Intake Total 638 ml Balance 638 ml Intake Oral 638 ml # Voids 8 Physical Exam Heart: Regular rate, Normal S1, Normal S2 General: Alert, Oriented X3, Cooperative, mild distress Lungs: Other (Ronchi heard bilaterally) Neuro: Normal speech Assessment Assessment Problems Medical Problems: (1) Acute and chronic respiratory failure Status: Acute (2) Acute respiratory failure Status: Acute (3) COPD exacerbation Status: Acute Plan Plan of Care Medical Problems: (1) Acute and chronic respiratory failure-, resolved, due to Influenza A, Continue DuoNeb therapy, O2, she is at her baseline and PT/OT have seen and feel she is safe for home, see discharge summary Status: Acute (2) Acute respiratory failure - resolved, at baseline Status: Acute (3) COPD exacerbation - resolved (4) chronic pain, uncontrolled on 20 mg of oxycodone bid so will increase to tid , rx for 10 mg 1-2 tabs tid prn #180 Status: Acute Comment Review of Relevant I have reviewed the following items shubham (where applicable) has been applied. Labs Laboratory Tests Test 04/04/16 09:30 White Blood Count 13.9x10^3/uL (4.0-11.0) Red Blood Count 3.39x10^6/uL (3.50-5.40) Hemoglobin 10.3g/dL (12.0-15.5) Hematocrit 31.9% (36.0-47.0) Mean Corpuscular Volume 94fL (79-100) Mean Corpuscular Hemoglobin 30pg (25-35) Mean Corpuscular Hemoglobin Concent 32g/dL (31-37) Red Cell Distribution Width 14.0% (11.5-14.5) Platelet Count 242x10^3/uL (140-400) Neutrophils (%) (Auto) 88% (31-73) Lymphocytes (%) (Auto) 6% (24-48) Monocytes (%) (Auto) 6% (0-9) Eosinophils (%) (Auto) 0% (0-3) Basophils (%) (Auto) 0% (0-3) Neutrophils # (Auto) 12.2x10^3uL (1.8-7.7) Lymphocytes # (Auto) 0.9x10^3/uL (1.0-4.8) Monocytes # (Auto) 0.8x10^3/uL (0.0-1.1) Eosinophils # (Auto) 0.0x10^3/uL (0.0-0.7) Basophils # (Auto) 0.0x10^3/uL (0.0-0.2) Laboratory Tests Test 04/04/16 09:30 White Blood Count 13.9x10^3/uL (4.0-11.0) Red Blood Count 3.39x10^6/uL (3.50-5.40) Hemoglobin 10.3g/dL (12.0-15.5) Hematocrit 31.9% (36.0-47.0) Mean Corpuscular Volume 94fL (79-100) Mean Corpuscular Hemoglobin 30pg (25-35) Mean Corpuscular Hemoglobin Concent 32g/dL (31-37) Red Cell Distribution Width 14.0% (11.5-14.5) Platelet Count 242x10^3/uL (140-400) Neutrophils (%) (Auto) 88% (31-73) Lymphocytes (%) (Auto) 6% (24-48) Monocytes (%) (Auto) 6% (0-9) Eosinophils (%) (Auto) 0% (0-3) Basophils (%) (Auto) 0% (0-3) Neutrophils # (Auto) 12.2x10^3uL (1.8-7.7) Lymphocytes # (Auto) 0.9x10^3/uL (1.0-4.8) Monocytes # (Auto) 0.8x10^3/uL (0.0-1.1) Eosinophils # (Auto) 0.0x10^3/uL (0.0-0.7) Basophils # (Auto) 0.0x10^3/uL (0.0-0.2) Medications Current Medications Albuterol/ Ipratropium (Duoneb) 3 ml 1X ONCE NEB Last administered on 22:08; Start 04/02/16 at 22:00; Stop 04/02/16 at 22:01; Status DC Methylprednisolone Sodium Succinate (Solu-Medrol 125mg Vial) 125 mg 1X ONCE IV Last administered on 04/02/16 22:18; Start 04/02/16 at 22:00; Stop 04/02/16 at 22:01; Status DC Albuterol Sulfate (Ventolin Neb Soln) 10 mg 1X ONCE CONT NEB Last administered on 04/02/16 22:09; Start 04/02/16 at 22:00; Stop 04/02/16 at 22:01 ; Status DC Fentanyl Citrate (Fentanyl 2ml Vial) 25 mcg PRN Q15MIN PRN IV pain; Start 04/02 at 22:00; Stop 04/03/16 at 10:23; Status DC Ondansetron HCl (Zofran) 4 mg PRN Q8HRS PRN IV NAUSEA/VOMITING; Start 04/02/16 at 22:15; Stop 04/03/16 at 22:14; Status DC Fentanyl Citrate (Fentanyl 2ml Vial) 50 mcg PRN Q2HR PRN IV PAIN Last administered on 04/03/16 08:49; Start 04/02/16 at 22:15; Stop 04/03/16 at 10:23 ; Status DC Acetaminophen (Tylenol) 650 mg PRN Q4HRS PRN PO FEVER; Start 04/02/16 at 22:15 ; Stop 04/03/16 at 22:14; Status DC Albuterol/ Ipratropium (Duoneb) 3 ml RTQID NEB Last administered on 04/04/16 07:41; Start 04/03/16 at 08:00; Stop 04/04/16 at 07:59; Status DC Levofloxacin/ Dextrose 1 each 1 each PRN DAILY PRN MC SEE COMMENTS; Start 04/02 at 23:00; Stop 04/04/16 at 17:03; Status DC Levofloxacin/ Dextrose (LEVAQUIN 500mg PREMIX) 100 ml @ 100 mls/hr Q24H IV Last administered on 04/03/16 23:27; Start 04/02/16 at 23:00; Stop 04/04/16 at 14:24; Status DC Oseltamivir Phosphate (Tamiflu) 75 mg BID PO Last administered on 04/05/16 08: 01; Start 04/03/16 at 09:00; Stop 04/08/16 at 08:59 Oseltamivir Phosphate 75 mg 75 mg 1X STAT PO Last administered on 04/02/16 23 :49; Start 04/02/16 at 23:30; Stop 04/02/16 at 23:32; Status DC Sodium Chloride (Iv Sodium Chloride 0.9% 500ml Bag) 500 ml @ 500 mls/hr 1X ONCE IV Last administered on 04/03/16 00:15; Start 04/03/16 at 00:15; Stop at 01:14; Status DC Aspirin (Fortino Aspirin) 325 mg DAILY PO Last administered on 04/05/16 08:03; Start 04/03/16 at 10:30 Vitamin D (Vitamin D3) 1,000 unit BID PO Last administered on 04/05/16 08:01; Start 04/03/16 at 11:00 Albuterol/ Ipratropium (Duoneb) 3 ml RTQID NEB ; Start 04/03/16 at 12:00; Stop 04/03/16 at 12:00; Status DC Levothyroxine Sodium (Synthroid) 75 mcg DAILYAC PO Last administered on 08:01; Start 04/03/16 at 10:30 Budesonide (Pulmicort) 0.5 mg RTBID NEB Last administered on 04/05/16 07:15; Start 04/03/16 at 11:00 Ibuprofen (Motrin) 600 mg TID PO Last administered on 04/05/16 08:01; Start at 14:00 Oxycodone HCl (Roxicodone) 20 mg PRN BID PRN PO PAIN; Start 04/03/16 at 10:30; Stop 04/03/16 at 10:47; Status DC Oxycodone HCl (Roxicodone) 20 mg PRN BID PRN PO PAIN Last administered on 20:45; Start 04/03/16 at 11:00 Albuterol/ Ipratropium (Duoneb) 3 ml RTQID NEB Last administered on 2/28/17at 07:15; Start 04/04/16 at 12:00 Albuterol Sulfate (Ventolin Neb Soln) 2.5 mg PRN Q4HRS PRN NEB SHORTNESS OF BREATH; Start 04/04/16 at 08:30 Levofloxacin (Levaquin) 500 mg QHS PO ; Start 04/04/16 at 21:00; Stop 04/04/16 at 21:00; Status DC Active Scripts Active Asmanex (Mometasone Furoate) 220 Mcg Aer.pow.ba 220 Mcg IH DAILY Duoneb 0.5-3(2.5) Mg/3 Ml (Albuterol/Ipratropium) 3 Ml Ampul.neb 3 Ml NEB RTQID Reported Oxycodone Hcl 10 Mg Tablet 20 Mg PO BID Vitamin D (Cholecalciferol (Vitamin D3)) 1,000 Unit Tablet 1,000 Unit PO BID Aspirin 325 Mg Tablet 1 Tab PO DAILY Daypro (Oxaprozin) 600 Mg Tablet 1 Tab PO BID Levothyroxine Sodium 75 Mcg Tablet 1 Tab PO DAILY Vitals/I & O Vital Sign - Last 24 Hours 04/04/16 04/04/16 04/04/16 04/04/16 08:48 11:09 13:53 14:13 Temp 98.1 98.2 98.1 98.2 Pulse 87 98 Resp 18 18 B/P 109/62 95/57 Pulse Ox 95 96 97 O2 Delivery Nasal Cannula Nasal Cannula Nasal Cannula Nasal Cannula O2 Flow Rate 2.0 2.0 2.0 2.5 04/04/16 04/04/16 04/04/16 04/04/16 15:00 19:00 19:09 19:11 Temp 97.9 97.9 97.9 97.9 Pulse 90 90 Resp 18 20 B/P 95/52 107/56 Pulse Ox 90 97 99 99 O2 Delivery Nasal Cannula Nasal Cannula Nasal Cannula Nasal Cannula O2 Flow Rate 2.0 2.0 2.5 2.5 04/04/16 04/04/16 04/04/16 04/04/16 19:15 20:45 21:45 23:00 Temp 99.1 99.1 Pulse 88 Resp 18 18 20 B/P 100/53 Pulse Ox 99 99 93 O2 Delivery Nasal Cannula Nasal Cannula Nasal Cannula Nasal Cannula O2 Flow Rate 2.0 2.5 2.5 2.0 2/28/17 2/28/17 03:00 07:15 Temp 98.1 98.1 Pulse 91 Resp 20 B/P 105/49 Pulse Ox 95 98 O2 Delivery Nasal Cannula Nasal Cannula O2 Flow Rate 2.0 2.5 Intake and Output 04/04/16 04/04/16 04/05/16 15:00 23:00 07:00 Intake Total 198 ml 440 ml Balance 198 ml 440 ml Cam COONEY MD Apr 05, 2016 08:37
[2016-04-05] MEDS ORDERED: OXYC10TA PO (08:58)
[2016-04-05] MEDS ORDERED: OSEL75CA PO (08:58)
--- NOTE | 2016-04-05 08:59 | DISCH ---
DISCHARGE FINAL DIAGNOSIS Problems Medical Problems: (1) Acute and chronic respiratory failure Status: Acute (2) Acute respiratory failure Status: Acute (3) COPD exacerbation Status: Acute (4) Influenza A Status: Acute CONDITION ON DISCHARGE: Stable POST DISCHARGE ORDERS ACTIVITY ORDERS: Activity as tolerated, Avoid exertion WEIGHT BEARING STATUS: As tolerated DIET AFTER DISCHARGE: Regular FOLLOW-UP PHYSICIAN FOLLOW-UP: Dr. Cooney in 1 week TREATMENT/EQUIPMENT ORDERS ADAPTIVE EQUIPMENT NEEDED: None RESPIRATORY EQUIPMENT NEEDED: Oxygen, Nebulizer Cam COONEY MD Apr 05, 2016 08:59
--- NOTE | 2016-04-05 09:54 | PDOC ---
PULMONARY PROGRESS NOTES Subjective no soa Vitals Vital Signs Date Time Temp Pulse Resp B/P Pulse Ox O2 Delivery O2 Flow Rate FiO2 04/05/16 07:45 Nasal Cannula 2.5 04/05/16 07:15 98 04/05/16 07:00 97.7 84 18 113/66 97.7 General: Alert, No acute distress Lungs: Other (decrease bs) Cardiovascular: S1 Abdomen: Soft Neuro Exam: Alert Extremities: No Edema Labs Laboratory Tests Test 04/04/16 09:30 White Blood Count 13.9x10^3/uL (4.0-11.0) Red Blood Count 3.39x10^6/uL (3.50-5.40) Hemoglobin 10.3g/dL (12.0-15.5) Hematocrit 31.9% (36.0-47.0) Mean Corpuscular Volume 94fL (79-100) Mean Corpuscular Hemoglobin 30pg (25-35) Mean Corpuscular Hemoglobin Concent 32g/dL (31-37) Red Cell Distribution Width 14.0% (11.5-14.5) Platelet Count 242x10^3/uL (140-400) Neutrophils (%) (Auto) 88% (31-73) Lymphocytes (%) (Auto) 6% (24-48) Monocytes (%) (Auto) 6% (0-9) Eosinophils (%) (Auto) 0% (0-3) Basophils (%) (Auto) 0% (0-3) Neutrophils # (Auto) 12.2x10^3uL (1.8-7.7) Lymphocytes # (Auto) 0.9x10^3/uL (1.0-4.8) Monocytes # (Auto) 0.8x10^3/uL (0.0-1.1) Eosinophils # (Auto) 0.0x10^3/uL (0.0-0.7) Basophils # (Auto) 0.0x10^3/uL (0.0-0.2) Medications Active Scripts Medications Dose Route/Sig Days Date Category Asmanex (Mometasone Furoate) 220 Mcg Aer.pow.ba 220 Mcg IH DAILY 01/29/16 Rx Duoneb 0.5-3(2.5) Mg/3 Ml (Albuterol/Ipratropium) 3 Ml Ampul.neb 3 Ml NEB RTQID 01/29/16 Rx Oxycodone Hcl 10 Mg Tablet 20 Mg PO BID 01/26/16 Reported Vitamin D (Cholecalciferol (Vitamin D3)) 1,000 Unit Tablet 1,000 Unit PO BID 11/10/15 Reported Aspirin 325 Mg Tablet 1 Tab PO DAILY 10/01/15 Reported Daypro (Oxaprozin) 600 Mg Tablet 1 Tab PO BID 10/01/15 Reported Levothyroxine Sodium 75 Mcg Tablet 1 Tab PO DAILY 10/01/15 Reported Impression . 1. Gvsgg-rv-xvwxpst respiratory failure secondary to acute exacerbation of chronic obstructive pulmonary disease and viral pneumonitis. 2. Influenza A pneumonitis. 3. Abnormal chest x-ray with prominent interstitial markings with a normal proBNP. This is most likely related to viral pneumonitis. 4. Normal ejection fraction of 65% previously. Plan . 1. Continue Tamiflu. 2. Respiratory isolation for influenza. 3. Continue with DuoNebs. 4. Monitor white cell count. It could be high due to steroids. 5. Continue empiric antibiotics for now. 6. increase ambulation 7. Smoking cessation counseling provided. ERIBERTO PEARL MD Apr 05, 2016 09:54
[2016-04-05 11:18] VITALS: BP 117/67
== END 2016-04-05 13:45 | disposition home or self-care (01) | DRG 193 ==
LOC: ER 21:51 → 1 WEST ICU 22:00 → 5 NORTH 04-03 11:29
PROVIDERS: ADMIT Family Medicine; ATTEND Family Medicine
PROC: 5A09357 Assistance with Respiratory Ventilation, Less than 24 Consecutive Hours, Continuous Positive Airway Pressure (ICD-10-PCS; principal; 2016-04-02)
DX: J12.9 Viral pneumonia, unspecified (principal); J10.08 Influenza due to other identified influenza virus with other specified pneumonia; J96.21 Acute and chronic respiratory failure with hypoxia; Z68.1 Body mass index [BMI] 19.9 or less, adult; J44.0 Chronic obstructive pulmonary disease with (acute) lower respiratory infection; J44.1 Chronic obstructive pulmonary disease with (acute) exacerbation; E03.9 Hypothyroidism, unspecified; F17.210 Nicotine dependence, cigarettes, uncomplicated; G89.29 Other chronic pain; I50.9 Heart failure, unspecified; M81.0 Age-related osteoporosis without current pathological fracture; F32.9 Major depressive disorder, single episode, unspecified; F41.9 Anxiety disorder, unspecified; M19.90 Unspecified osteoarthritis, unspecified site; Z86.74 Personal history of sudden cardiac arrest; Z99.81 Dependence on supplemental oxygen; Z87.440 Personal history of urinary (tract) infections; Z91.013 Allergy to seafood; Z79.899 Other long term (current) drug therapy; Z79.82 Long term (current) use of aspirin
CPT/HCPCS: 36415; 36600; 71010; 71020; 80048; 82805; 83880; 84484; 85007; 85027; 85379; 87641; 87804; 93005; 93971; 94640; 94660; 94760; 96361; 96374; J1956; J2930; J3010; J7040; J7620; 99291-25